=== PATIENT | female | born 1965 | race Caucasian/White ===

== ENCOUNTER 2017-05-08 12:27 | Inpatient (IN) | payer BC ==
[~2017-05-08] VITALS: Ht 152.4 cm; Wt 82.2 kg
[2017-05-08 13:37] LABS: BASOPHILS % (AUTO) 0.1 % (0-1); EOSINOPHILS # (AUTO) 0.1 X10'3 (0-0.9); EOSINOPHILS % (AUTO) 1.2 % (0-6); HEMATOCRIT 40.3 % (35.0-45.0); HEMOGLOBIN 13.5 g/dl (12.0-16.0); LYMPHOCYTES # (AUTO) 0.8 X10'3 (1.1-4.8); LYMPHOCYTES % (AUTO) 10.3 % (21-51); MEAN CORPUSCULAR HEMOGLOBIN 27.6 PG (27.0-31.0); MEAN CORPUSCULAR HGB CONC 33.5 % (33.0-36.5); MEAN CORPUSCULAR VOLUME 82.4 FL (78-98); MEAN PLATELET VOLUME 7.7 FL (7.4-10.4); MONOCYTES # (AUTO) 0.6 X10'3 (0-0.9); MONOCYTES % (AUTO) 7.8 % (2-12); NEUTROPHILS # (AUTO) 6.5 X10'3 (1.8-7.7); NEUTROPHILS % (AUTO) 80.6 % (42-75); PLATELET COUNT 443 X10'3 (140-440); RED BLOOD COUNT 4.89 X10'6 (4.20-5.60); RED CELL DISTRIBUTION WIDTH 13.6 % (11.5-14.5)
[2017-05-08 13:53] LABS: ALANINE AMINOTRANSFERASE 65 U/L (12-78); ALBUMIN 2.9 G/DL (3.4-5.0); ALBUMIN/GLOBULIN RATIO 0.5 (1.1-1.5); ALKALINE PHOSPHATASE 254 IU/L (46-116); ANION GAP 12 (8-16); ASPARTATE AMINO TRANSFERASE 54 U/L (10-37); BILIRUBIN,TOTAL 0.8 MG/DL (0.1-1.0); BLOOD UREA NITROGEN 12 MG/DL (7-18); BUN/CREATININE RATIO 25.5 (6.6-38.0); CALCIUM 8.9 MG/DL (8.5-10.1); CHLORIDE 95 MMOL/L (99-107); CREATININE 0.47 MG/DL (0.40-0.90); GLUCOSE 156 MG/DL (70-104); SODIUM 137 MMOL/L (135-145); TOTAL CARBON DIOXIDE 29.8 MMOL/L (24-32); TOTAL PROTEIN 8.2 G/DL (6.4-8.2); eGFR > 90 ML/MIN
[2017-05-08 13:56] LABS: POTASSIUM 2.7 MMOL/L (3.5-5.1)
[2017-05-08] MEDS ORDERED: potassium Cl oral solution 20 MEQ/15 ML PO ONE (14:10)
[2017-05-08] MEDS ORDERED: normal saline 1000ML IV soln IV ONE (14:10)
[2017-05-08] MEDS ORDERED: ipratropium/albuterol 3ml nebule NEB ONE (14:15)
[2017-05-08] MEDS ORDERED: levoFLOXACIN-Levaquin 750MG/D5 150 ML IV ONE (14:35)
[2017-05-08 15:06] LABS: CLARITY,URINE SLIGHTLY CLOUDY (Clear); GLUCOSE, URINE NEGATIVE (Neg); KETONES,URINE >=80 mg/dl (Neg); LEUKOCYTE ESTERASE ,URINE NEGATIVE (Neg); NITRITES, URINE NEGATIVE (Neg); OCCULT BLOOD,URINE TRACE-INTACT (Neg); PH,URINE 6.5 (4.8-8.0); PROTEIN,URINE 30 mg/dl (Neg); UROBILINOGEN,URINE >=8.0 E.U/dL (0.2-1.0)
[2017-05-08 15:09] LABS: UA COLLECTION TYPE STRAIGHT CATH
[2017-05-08 15:10] LABS: COLOR,URINE DARK YELLOW (Yellow)
[2017-05-08 15:16] LABS: MUCUS STRANDS MANY /LPF (Neg); SQUAMOUS EPITHELIAL CELL,UR MANY /LPF (FEW)
[2017-05-08 15:18] LABS: TRANSITIONAL EPI CELLS,URINE FEW /HPF
[2017-05-08 15:20] LABS: BACTERIA,URINE NONE SEEN /HPF (Neg); RENAL CELLS, URINE FEW /HPF; WBC,URINE 0-4 /HPF (0-4)
[2017-05-08] MEDS ORDERED: LEVO500T2 PO (16:29)
[2017-05-08] MEDS ORDERED: PRED5TAB PO (16:29)
[2017-05-08] MEDS ORDERED: DEXT15LI10 PO (16:29)
[2017-05-08] MEDS ORDERED: FLU VACC QS2017-18 36MOS UP/PF 60 MCG/0.5 ML SYRINGE IMVAC ONE (16:50)
[2017-05-08] MEDS ORDERED: pneumococcal 23-VAL P-sac vacc 25 mcg/0.5ml vial IMVAC ONE (16:50)
[2017-05-08] MEDS ORDERED: magnesium 2GM in 50ml NS 50 ML IV PRN (17:45)
[2017-05-08] MEDS ORDERED: ondansetron/PF 4mg/2ml inj IV PRN (17:45)
[2017-05-08] MEDS ORDERED: magnesium hydroxide 30ml (MOM) UD suspension PO PRN (17:45)
[2017-05-08] MEDS ORDERED: magnesium 4gm in 100ml NS 100 ML IV PRN (17:45)
[2017-05-08] MEDS ORDERED: potassium Cl 20 mEq SR tablet PO PRN (17:45)
[2017-05-08] MEDS ORDERED: acetaminophen 325mg tablet PO PRN (17:45)
[2017-05-08] MEDS ORDERED: magnesium Cl slow-release 64mg tablet PO PRN (17:45)
[2017-05-08] MEDS ORDERED: potassium Cl 40MEQ/NS 500ml 500 ML IV PRN ×2 (17:45)
[2017-05-08] MEDS ORDERED: iohexol 300mg/ml 100ml inj. ONE (17:55)
[2017-05-08 21:10] VITALS: BP 146/93
[2017-05-08] MEDS: methylPREDNISolone sod succ 125mg/2ml vial IV SCH (21:26)
[2017-05-08] MEDS: normal saline 1000ml 1,000 ML IV SCH (21:26)
[2017-05-09] VITALS: BP 148/80
[2017-05-09] MEDS: temazepam 15mg capsule PO PRN (00:05)
[2017-05-09] MEDS: methylPREDNISolone sod succ 125mg/2ml vial IV SCH ×4 (01:27→19:54)
[2017-05-09] MEDS: normal saline 1000ml 1,000 ML IV SCH (03:41)
[2017-05-09 05:31] LABS: BASOPHILS % (AUTO) 0.4 % (0-1); EOSINOPHILS % (AUTO) 0 % (0-6); HEMATOCRIT 35.8 % (35.0-45.0); HEMOGLOBIN 12.2 g/dl (12.0-16.0); LYMPHOCYTES # (AUTO) 0.7 X10'3 (1.1-4.8); LYMPHOCYTES % (AUTO) 5.7 % (21-51); MEAN CORPUSCULAR HEMOGLOBIN 28.1 PG (27.0-31.0); MEAN CORPUSCULAR HGB CONC 34.1 % (33.0-36.5); MEAN CORPUSCULAR VOLUME 82.5 FL (78-98); MEAN PLATELET VOLUME 7.5 FL (7.4-10.4); MONOCYTES # (AUTO) 0.4 X10'3 (0-0.9); MONOCYTES % (AUTO) 3.3 % (2-12); NEUTROPHILS # (AUTO) 10.7 X10'3 (1.8-7.7); NEUTROPHILS % (AUTO) 90.6 % (42-75); PLATELET COUNT 437 X10'3 (140-440); RED BLOOD COUNT 4.33 X10'6 (4.20-5.60); RED CELL DISTRIBUTION WIDTH 13.6 % (11.5-14.5); WHITE BLOOD COUNT 11.8 X10'3 (4.5-11.0)
[2017-05-09 06:10] LABS: ALANINE AMINOTRANSFERASE 72 U/L (12-78); ALBUMIN 2.5 G/DL (3.4-5.0); ALBUMIN/GLOBULIN RATIO 0.5 (1.1-1.5); ALKALINE PHOSPHATASE 249 IU/L (46-116); ANION GAP 12 (8-16); ASPARTATE AMINO TRANSFERASE 44 U/L (10-37); BILIRUBIN,TOTAL 0.4 MG/DL (0.1-1.0); BLOOD UREA NITROGEN 9 MG/DL (7-18); BUN/CREATININE RATIO 14.8 (6.6-38.0); CALCIUM 8.4 MG/DL (8.5-10.1); CHLORIDE 103 MMOL/L (99-107); CREATININE 0.61 MG/DL (0.40-0.90); GLUCOSE 206 MG/DL (70-104); POTASSIUM 3.3 MMOL/L (3.5-5.1); SODIUM 141 MMOL/L (135-145); TOTAL CARBON DIOXIDE 25.8 MMOL/L (24-32); TOTAL PROTEIN 7.3 G/DL (6.4-8.2); eGFR > 90 ML/MIN
[2017-05-09 07:00] VITALS: BP 166/80
[2017-05-09] MEDS ORDERED: azithromycin/NS 500mg/250ml 250 ML IV SCH (08:00)
[2017-05-09] MEDS: K and/or MAG REPLACEMENT MC SCH (08:00)
[2017-05-09] MEDS: potassium Cl 20 mEq SR tablet PO PRN ×3 (08:44→17:01)
[2017-05-09] MEDS: enoxaparin 40mg/0.4ml syringe SUBCUT SCH (08:45)
[2017-05-09] MEDS: levoFLOXACIN-Levaquin 500mg/D5 100 ML IV SCH (08:59)
[2017-05-09] MEDS ORDERED: ipratropium/albuterol 3ml nebule ONE (09:18)
[2017-05-09] MEDS: ipratropium 0.5 MG/2.5ML nebule IH PRN ×2 (09:21→15:14)
[2017-05-09 12:00] VITALS: BP 151/81
[2017-05-09] MEDS: oseltamivir phos 75mg capsule PO SCH (19:53)
[2017-05-09] MEDS: vancomycin inj 1,250 MG in normal saline 250ml IV soln 250 ML IV SCH (19:54)
[2017-05-09 20:00] VITALS: BP 120/77
[2017-05-09] MEDS ORDERED: ipratropium 0.5 MG/2.5ML nebule IH SCH (20:00)
[2017-05-09] MEDS: ipratropium 0.5 MG/2.5ML nebule IH SCH (20:38)
[2017-05-09] MEDS: LORazepam 1 MG tablet PO PRN (21:08)
[2017-05-10] VITALS: BP 155/84
[2017-05-10] MEDS: methylPREDNISolone sod succ 125mg/2ml vial IV SCH ×4 (02:47→20:35)
[2017-05-10] MEDS: vancomycin inj 1,250 MG in normal saline 250ml IV soln 250 ML IV SCH (02:47)
[2017-05-10] MEDS: ipratropium 0.5 MG/2.5ML nebule IH SCH ×4 (03:04→20:13)
[2017-05-10 06:12] LABS: BASOPHILS % (AUTO) 0.1 % (0-1); EOSINOPHILS % (AUTO) 0 % (0-6); HEMATOCRIT 34.3 % (35.0-45.0); HEMOGLOBIN 11.8 g/dl (12.0-16.0); LYMPHOCYTES # (AUTO) 0.7 X10'3 (1.1-4.8); LYMPHOCYTES % (AUTO) 3.7 % (21-51); MEAN CORPUSCULAR HEMOGLOBIN 28.4 PG (27.0-31.0); MEAN CORPUSCULAR HGB CONC 34.5 % (33.0-36.5); MEAN CORPUSCULAR VOLUME 82.5 FL (78-98); MEAN PLATELET VOLUME 7.6 FL (7.4-10.4); NEUTROPHILS # (AUTO) 17.5 X10'3 (1.8-7.7); NEUTROPHILS % (AUTO) 91.2 % (42-75); PLATELET COUNT 514 X10'3 (140-440); RED BLOOD COUNT 4.16 X10'6 (4.20-5.60); RED CELL DISTRIBUTION WIDTH 14.1 % (11.5-14.5); WHITE BLOOD COUNT 19.2 X10'3 (4.5-11.0)
[2017-05-10 06:23] LABS: ALANINE AMINOTRANSFERASE 61 U/L (12-78); ALBUMIN 2.4 G/DL (3.4-5.0); ALBUMIN/GLOBULIN RATIO 0.5 (1.1-1.5); ALKALINE PHOSPHATASE 209 IU/L (46-116); ANION GAP 12 (8-16); ASPARTATE AMINO TRANSFERASE 26 U/L (10-37); BILIRUBIN,TOTAL 0.4 MG/DL (0.1-1.0); BLOOD UREA NITROGEN 16 MG/DL (7-18); BUN/CREATININE RATIO 26.7 (6.6-38.0); CALCIUM 8.6 MG/DL (8.5-10.1); CHLORIDE 106 MMOL/L (99-107); GLUCOSE 200 MG/DL (70-104); SODIUM 143 MMOL/L (135-145); TOTAL CARBON DIOXIDE 25.4 MMOL/L (24-32); TOTAL PROTEIN 6.8 G/DL (6.4-8.2); eGFR > 90 ML/MIN
[2017-05-10 07:14] VITALS: BP 155/84
[2017-05-10] MEDS: oseltamivir phos 75mg capsule PO SCH ×2 (07:53→20:35)
[2017-05-10] MEDS: enoxaparin 40mg/0.4ml syringe SUBCUT SCH (07:55)
[2017-05-10] MEDS: levoFLOXACIN-Levaquin 500mg/D5 100 ML IV SCH ×2 (07:55→08:00)
[2017-05-10] MEDS: nicotine 21mg patch - 24 hr TD SCH (07:59)
[2017-05-10] MEDS: K and/or MAG REPLACEMENT MC SCH (08:00)
[2017-05-10] MEDS: LORazepam 1 MG tablet PO PRN ×2 (08:23→21:15)
[2017-05-10] MEDS ORDERED: VANCOMYCIN LEVEL IV ONE (10:30)
[2017-05-10 11:00] VITALS: BP 150/84
[2017-05-10] MEDS ORDERED: levoFLOXACIN 500mg tablet PO SCH (12:10)
[2017-05-10 15:23] LABS: HBSAG SCREEN Negative (Negative); HEP B CORE AB, IGM Negative (Negative); HEPATITIS C ANTIBODY <0.1 s/co ratio (0.0-0.9)
[2017-05-10] MEDS: lactobacillus rhamnosus 10,000 MMU CELLS/CAPSULE PO SCH (17:02)
[2017-05-10 20:00] VITALS: BP 143/87
[2017-05-10] MEDS: guaiFENesin ER 600mg tablet PO SCH (20:35)
[2017-05-10 23:00] VITALS: BP 151/89
[2017-05-11] MEDS: methylPREDNISolone sod succ 125mg/2ml vial IV SCH ×4 (01:20→19:18)
[2017-05-11] MEDS: ipratropium 0.5 MG/2.5ML nebule IH SCH ×4 (03:09→21:06)
[2017-05-11 05:54] LABS: BASOPHILS % (AUTO) 0.1 % (0-1); EOSINOPHILS # (AUTO) 0.3 X10'3 (0-0.9); EOSINOPHILS % (AUTO) 1.8 % (0-6); HEMATOCRIT 36.5 % (35.0-45.0); HEMOGLOBIN 12.3 g/dl (12.0-16.0); LYMPHOCYTES # (AUTO) 0.7 X10'3 (1.1-4.8); LYMPHOCYTES % (AUTO) 3.8 % (21-51); MEAN CORPUSCULAR HEMOGLOBIN 28.1 PG (27.0-31.0); MEAN CORPUSCULAR HGB CONC 33.7 % (33.0-36.5); MEAN CORPUSCULAR VOLUME 83.2 FL (78-98); MEAN PLATELET VOLUME 7.5 FL (7.4-10.4); MONOCYTES # (AUTO) 0.6 X10'3 (0-0.9); MONOCYTES % (AUTO) 3.4 % (2-12); NEUTROPHILS # (AUTO) 15.7 X10'3 (1.8-7.7); NEUTROPHILS % (AUTO) 90.9 % (42-75); PLATELET COUNT 557 X10'3 (140-440); RED BLOOD COUNT 4.38 X10'6 (4.20-5.60); RED CELL DISTRIBUTION WIDTH 13.9 % (11.5-14.5); WHITE BLOOD COUNT 17.3 X10'3 (4.5-11.0)
[2017-05-11 06:18] LABS: ALANINE AMINOTRANSFERASE 42 U/L (12-78); ALBUMIN 2.5 G/DL (3.4-5.0); ALBUMIN/GLOBULIN RATIO 0.6 (1.1-1.5); ALKALINE PHOSPHATASE 185 IU/L (46-116); ANION GAP 10 (8-16); ASPARTATE AMINO TRANSFERASE 15 U/L (10-37); BILIRUBIN,TOTAL 0.4 MG/DL (0.1-1.0); BLOOD UREA NITROGEN 19 MG/DL (7-18); CALCIUM 7.9 MG/DL (8.5-10.1); CHLORIDE 106 MMOL/L (99-107); CREATININE 0.73 MG/DL (0.40-0.90); GLUCOSE 166 MG/DL (70-104); POTASSIUM 3.9 MMOL/L (3.5-5.1); SODIUM 143 MMOL/L (135-145); TOTAL PROTEIN 6.7 G/DL (6.4-8.2); eGFR 84 ML/MIN
[2017-05-11] MEDS: lactobacillus rhamnosus 10,000 MMU CELLS/CAPSULE PO SCH ×2 (07:17→18:02)
[2017-05-11] MEDS: guaiFENesin ER 600mg tablet PO SCH ×2 (07:17→19:17)
[2017-05-11] MEDS: enoxaparin 40mg/0.4ml syringe SUBCUT SCH (07:17)
[2017-05-11] MEDS: nicotine 21mg patch - 24 hr TD SCH (07:17)
[2017-05-11] MEDS: oseltamivir phos 75mg capsule PO SCH ×2 (07:17→19:17)
[2017-05-11 08:00] VITALS: BP 154/74
[2017-05-11] MEDS: K and/or MAG REPLACEMENT MC SCH (08:00)
[2017-05-11] MEDS: levoFLOXACIN-Levaquin 500mg/D5 100 ML IV SCH (08:40)
[2017-05-11 11:38] VITALS: BP 157/82
[2017-05-11] MEDS ORDERED: VANCOMYCIN LEVEL IV ONE (14:30)
[2017-05-11] MEDS: vancomycin inj 1,250 MG in normal saline 250ml IV soln 250 ML IV SCH ×2 (16:00→23:37)
[2017-05-11 19:00] VITALS: BP 145/83
[2017-05-11] MEDS: temazepam 15mg capsule PO PRN (22:16)
[2017-05-12] VITALS: BP 163/89
[2017-05-12] MEDS ORDERED: furosemide 20 MG/2 ML vial IV ONE (01:00)
[2017-05-12] MEDS: methylPREDNISolone sod succ 125mg/2ml vial IV SCH ×4 (02:08→20:38)
[2017-05-12] MEDS: ipratropium 0.5 MG/2.5ML nebule IH SCH ×4 (03:19→21:21)
[2017-05-12 06:13] LABS: BASOPHILS # (AUTO) 0.3 X10'3 (0-0.2); BASOPHILS % (AUTO) 1.7 % (0-1); EOSINOPHILS % (AUTO) 0 % (0-6); HEMATOCRIT 36.9 % (35.0-45.0); HEMOGLOBIN 12.5 g/dl (12.0-16.0); LYMPHOCYTES # (AUTO) 0.6 X10'3 (1.1-4.8); LYMPHOCYTES % (AUTO) 4.1 % (21-51); MEAN CORPUSCULAR HEMOGLOBIN 27.7 PG (27.0-31.0); MEAN CORPUSCULAR HGB CONC 33.8 % (33.0-36.5); MEAN CORPUSCULAR VOLUME 82.1 FL (78-98); MEAN PLATELET VOLUME 7.4 FL (7.4-10.4); MONOCYTES # (AUTO) 0.9 X10'3 (0-0.9); MONOCYTES % (AUTO) 6.2 % (2-12); PLATELET COUNT 631 X10'3 (140-440); RED CELL DISTRIBUTION WIDTH 13.9 % (11.5-14.5); WHITE BLOOD COUNT 14.7 X10'3 (4.5-11.0)
[2017-05-12 06:31] LABS: ALANINE AMINOTRANSFERASE 44 U/L (12-78); ALBUMIN 2.6 G/DL (3.4-5.0); ALBUMIN/GLOBULIN RATIO 0.6 (1.1-1.5); ALKALINE PHOSPHATASE 181 IU/L (46-116); ANION GAP 11 (8-16); ASPARTATE AMINO TRANSFERASE 15 U/L (10-37); BILIRUBIN,TOTAL 0.3 MG/DL (0.1-1.0); BLOOD UREA NITROGEN 19 MG/DL (7-18); BUN/CREATININE RATIO 28.4 (6.6-38.0); CALCIUM 7.9 MG/DL (8.5-10.1); CHLORIDE 103 MMOL/L (99-107); CREATININE 0.67 MG/DL (0.40-0.90); GLUCOSE 215 MG/DL (70-104); MAGNESIUM 2.1 MG/DL (1.5-2.4); POTASSIUM 3.8 MMOL/L (3.5-5.1); SODIUM 141 MMOL/L (135-145); TOTAL CARBON DIOXIDE 27.1 MMOL/L (24-32); TOTAL PROTEIN 6.8 G/DL (6.4-8.2); eGFR > 90 ML/MIN
[2017-05-12] MEDS: K and/or MAG REPLACEMENT MC SCH (06:43)
[2017-05-12 07:00] VITALS: BP 138/76
[2017-05-12] MEDS: lactobacillus rhamnosus 10,000 MMU CELLS/CAPSULE PO SCH ×2 (09:30→16:31)
[2017-05-12] MEDS: oseltamivir phos 75mg capsule PO SCH ×2 (09:31→20:38)
[2017-05-12] MEDS: nicotine 21mg patch - 24 hr TD SCH (09:31)
[2017-05-12] MEDS: guaiFENesin ER 600mg tablet PO SCH ×2 (09:31→20:39)
[2017-05-12] MEDS: enoxaparin 40mg/0.4ml syringe SUBCUT SCH (09:32)
[2017-05-12] MEDS: vancomycin inj 1,250 MG in normal saline 250ml IV soln 250 ML IV SCH ×2 (09:32→16:30)
[2017-05-12 11:00] VITALS: BP 150/100
[2017-05-12] MEDS: levoFLOXACIN-Levaquin 500mg/D5 100 ML IV SCH (11:11)
[2017-05-12] MEDS: mag hydrox/Alum hydrox/simeth 30ml oral suspension PO PRN ×2 (11:14→20:51)
[2017-05-12] MEDS: hyDRALAzine 10mg tablet PO SCH ×2 (14:46→20:38)
[2017-05-12] MEDS ORDERED: VANCOMYCIN LEVEL IV ONE (15:30)
[2017-05-12 19:00] VITALS: BP 139/85
[2017-05-13] VITALS: BP 149/79
[2017-05-13] MEDS: vancomycin inj 1,250 MG in normal saline 250ml IV soln 250 ML IV SCH ×2 (00:07→09:13)
[2017-05-13] MEDS: temazepam 15mg capsule PO PRN (00:12)
[2017-05-13] MEDS: hyDRALAzine 10mg tablet PO SCH ×3 (02:22→14:57)
[2017-05-13] MEDS: methylPREDNISolone sod succ 125mg/2ml vial IV SCH ×3 (02:22→14:57)
[2017-05-13] MEDS: ipratropium 0.5 MG/2.5ML nebule IH SCH ×2 (02:55→08:16)
[2017-05-13 05:57] LABS: BASOPHILS % (AUTO) 0 % (0-1); EOSINOPHILS % (AUTO) 0 % (0-6); HEMATOCRIT 38.3 % (35.0-45.0); HEMOGLOBIN 12.9 g/dl (12.0-16.0); LYMPHOCYTES # (AUTO) 0.5 X10'3 (1.1-4.8); LYMPHOCYTES % (AUTO) 3.7 % (21-51); MEAN CORPUSCULAR HEMOGLOBIN 27.7 PG (27.0-31.0); MEAN CORPUSCULAR HGB CONC 33.7 % (33.0-36.5); MEAN CORPUSCULAR VOLUME 82.4 FL (78-98); MEAN PLATELET VOLUME 7.3 FL (7.4-10.4); MONOCYTES # (AUTO) 0.5 X10'3 (0-0.9); MONOCYTES % (AUTO) 3.7 % (2-12); NEUTROPHILS # (AUTO) 11.6 X10'3 (1.8-7.7); NEUTROPHILS % (AUTO) 92.6 % (42-75); PLATELET COUNT 697 X10'3 (140-440); RED BLOOD COUNT 4.65 X10'6 (4.20-5.60); RED CELL DISTRIBUTION WIDTH 14.3 % (11.5-14.5); WHITE BLOOD COUNT 12.5 X10'3 (4.5-11.0)
[2017-05-13 06:21] LABS: ALANINE AMINOTRANSFERASE 41 U/L (12-78); ALBUMIN 2.5 G/DL (3.4-5.0); ALBUMIN/GLOBULIN RATIO 0.6 (1.1-1.5); ALKALINE PHOSPHATASE 164 IU/L (46-116); ANION GAP 12 (8-16); ASPARTATE AMINO TRANSFERASE 15 U/L (10-37); BILIRUBIN,TOTAL 0.4 MG/DL (0.1-1.0); BLOOD UREA NITROGEN 24 MG/DL (7-18); BUN/CREATININE RATIO 31.2 (6.6-38.0); CHLORIDE 103 MMOL/L (99-107); CREATININE 0.77 MG/DL (0.40-0.90); GLUCOSE 273 MG/DL (70-104); MAGNESIUM 2.3 MG/DL (1.5-2.4); POTASSIUM 4.1 MMOL/L (3.5-5.1); SODIUM 141 MMOL/L (135-145); TOTAL CARBON DIOXIDE 26.2 MMOL/L (24-32); TOTAL PROTEIN 6.5 G/DL (6.4-8.2); eGFR 79 ML/MIN
[2017-05-13 06:52] VITALS: BP 152/92
[2017-05-13 07:09] LABS: PLATELET ESTIMATE INCREASED
[2017-05-13 07:10] LABS: POLYCHROMASIA 1+
[2017-05-13 07:11] LABS: SCHISTOCYTES FEW; TARGET CELLS FEW
[2017-05-13] MEDS: K and/or MAG REPLACEMENT MC SCH (08:00)
[2017-05-13] MEDS: oseltamivir phos 75mg capsule PO SCH (09:08)
[2017-05-13] MEDS: lactobacillus rhamnosus 10,000 MMU CELLS/CAPSULE PO SCH (09:09)
[2017-05-13] MEDS: guaiFENesin ER 600mg tablet PO SCH (09:09)
[2017-05-13] MEDS: enoxaparin 40mg/0.4ml syringe SUBCUT SCH (09:13)
[2017-05-13] MEDS: nicotine 21mg patch - 24 hr TD SCH (09:14)
[2017-05-13] MEDS: levoFLOXACIN-Levaquin 500mg/D5 100 ML IV SCH (11:52)
[2017-05-13] MEDS ORDERED: AMLO5TAB4 PO (13:40)
[2017-05-13] MEDS ORDERED: LEVO500T2 PO (13:40)
[2017-05-13] MEDS ORDERED: NICO-687 TD (13:40)
[2017-05-13] MEDS ORDERED: CLIN-5 PO (13:40)
[2017-05-13] MEDS ORDERED: PRED20TA PO (13:40)
[2017-05-13] MEDS ORDERED: GUAI100L97 PO (13:44)
[2017-05-13] MEDS ORDERED: ALBU8.5H8 INH (13:58)
[2017-05-13] MEDS ORDERED: BUDE0.253 NEB (13:58)
[2017-05-13] MEDS ORDERED: oseltamivir phos 75mg capsule PO ONE (14:10)
[2017-05-13 14:45] VITALS: BP 166/92
== END 2017-05-13 16:20 | disposition home or self-care (01) | DRG 193 ==
LOC: ER 12:28 → ED HOLD 17:41 → MED 3N 21:22
PROVIDERS: ADMIT Internal Medicine; ATTEND Family Medicine
PROC: 3E0234Z Introduction of Serum, Toxoid and Vaccine into Muscle, Percutaneous Approach (ICD-10-PCS; principal; 2017-05-08)
PROC: BW241ZZ Computerized Tomography (CT Scan) of Chest and Abdomen using Low Osmolar Contrast (ICD-10-PCS; 2017-05-08)
DX: J11.00 Influenza due to unidentified influenza virus with unspecified type of pneumonia (principal); J96.01 Acute respiratory failure with hypoxia; J44.0 Chronic obstructive pulmonary disease with (acute) lower respiratory infection; J44.1 Chronic obstructive pulmonary disease with (acute) exacerbation; E86.0 Dehydration; E87.6 Hypokalemia; F15.10 Other stimulant abuse, uncomplicated; F17.210 Nicotine dependence, cigarettes, uncomplicated; R74.0 Nonspecific elevation of levels of transaminase and lactic acid dehydrogenase [LDH]; R79.89 Other specified abnormal findings of blood chemistry; R91.1 Solitary pulmonary nodule; E04.1 Nontoxic single thyroid nodule; Z87.01 Personal history of pneumonia (recurrent); Z23 Encounter for immunization
CPT/HCPCS: 36415; 71045; 71260; 80053; 80202; 81001; 82948; 83605; 83735; 85025; 86705; 86706; 86803; 87040; 87070; 87340; 87502; 87503; 90732; 93005; 94640; 94760; 96365; 96366; 99285; J0456; J1650; J1940; J1956; J2930; J3370; J7030; Q2037; Q9967

== ENCOUNTER 2020-04-15 20:32 | Emergency (ER) | payer BC ==
[~2020-04-15] VITALS: Ht 152.4 cm; Wt 68.2 kg
[~2020-04-15 20:32] MED LIST: ALBU8.5H8 INH; AMLO5TAB4 PO; BUDE0.253 NEB; CLIN-5 PO; DEXT15LI10 PO; GUAI100L97 PO; NICO-687 TD
[2020-04-15 20:35] VITALS: BP 128/80
== END 2020-04-15 21:19 | disposition home or self-care (01) ==
LOC: ER 20:33
DX: S62.306A Unspecified fracture of fifth metacarpal bone, right hand, initial encounter for closed fracture (principal); J44.9 Chronic obstructive pulmonary disease, unspecified; Z87.01 Personal history of pneumonia (recurrent); Z79.899 Other long term (current) drug therapy; W19.XXXA Unspecified fall, initial encounter; Y93.89 Activity, other specified; Y92.89 Other specified places as the place of occurrence of the external cause; Y99.8 Other external cause status
CPT/HCPCS: 29125; 73130; 99284